=== PATIENT | male | born 1955 | race Caucasian/White ===

== ENCOUNTER 2019-02-28 07:44 | Day surgery (SDC) | payer OTHER ==
[2019-02-28] VITALS (13 sets, daily range): BP systolic 104–133; BP diastolic 60–80; PULSE 64–70; RESP 16–20; Ht 185.4 cm; Wt 119.8 kg
[~2019-02-28] VITALS: Ht 185.4 cm; Wt 119.8 kg
[~2019-02-28 07:44] MED LIST: DESFLURANE 15 MIN ONE
[2019-02-28] MEDS ORDERED: LISI2.5T59 PO (08:49)
[2019-02-28] MEDS ORDERED: TAMS-14 PO (08:50)
[2019-02-28] MEDS ORDERED: VANCOMYCIN HCL 2 GM in SOD CHLORIDE 0.9% 500 ML IVPB ONE (09:30)
[2019-02-28] MEDS ORDERED: LACTATED RINGER'S 1,000 ML IV SCH ×2 (10:00→13:12)
--- NOTE | 2019-02-28 10:32 | PREAC ---
Date/Time of Note Date/Time of Note DATE: 02/28/19 TIME: 10:31 Anesthesia Eval and Record Evaluation Time Pre-Procedure Interview DATE: 02/28/19 TIME: 10:31 Age 63 Sex male NPO: 8 hrs Preoperative diagnosis LEFT SHOULDER MASS, NOSE MASS Planned procedure EXCISION OF LEFT SHOULDER MASS, NOSE MASS Past Medical History Past Medical History: Includes Cardio: HTN Renal: BPH GI: Obesity Surgery & Anesthesia Issues No known issue Meds Anticoagulation: No Beta Irena within 24 hr: No Reason Beta Irena not given: Pt. not on B-Irena Reported Medications Tamsulosin Hcl* (Flomax*) 0.4 Mg Cap.er.24h, 0.4 MG PO DAILY, CAP 02/28/19 Lisinopril* (Lisinopril*) 2.5 Mg Tablet, 2.5 MG PO DAILY, #30 TAB 02/28/19 Current Medications Vancomycin HCl 2 gm/Sodium Chloride 500 ml @ 125 mls/hr ONCE ONCE IVPB Last administered on 02/28/19at 09:31; Admin Dose 125 MLS/HR; Start 02/28/19 at 09:30; Stop 02/28/19 at 13:29 Lactated Ringer's 1,000 ml @ 20 mls/hr Q24H IV ; Start 02/28/19 at 10:00 Meds reviewed: Yes Allergies Coded Allergies: Penicillins (Verified Allergy, Unknown, 02/28/19) Allergies Reviewed: Yes Labs/Studies Labs Reviewed: Reviewed by anesthesiologist Result Diagram: 02/28/1904 02/28/19 0904 Laboratory Tests 02/28/19 09:04 test: N/A Pre-procedure Exam Last vitals Vital Signs Date Temp Pulse Resp B/P (MAP) Pulse Ox O2 O2 Flow FiO2 Time Delivery Rate 02/28/19 97.7 64 16 133/80 99 Room Air 08:13 (97) Airway: Adequate mouth opening, Adequate thyromental dist Mallampati: Mallampati II Teeth: Normal Lung: Normal Heart: Normal ASA Physical Status ASA physical status: 2 Emergency: None Planned Anesthetic General/MAC: ETT Planned Pain Management Parenteral pain med Pre-operative Attestations Prior to commencing anesthesia and surgery, the patient was re-evaluated, there was verification of: *The patient's identity *The results of appropriate recent lab work and preoperative vital signs *The above evaluation not changing prior to induction *Anesthetic plan, risk benefits, alternative and complications discussed with patient/family; questions answered; patient/family understands, accepts and wishes to proceed. Shlomo Perez M.D. Feb 28, 2019 10:32
[2019-02-28] MEDS ORDERED: ROCURONIUM 50 MG INJ ONE (10:37)
[2019-02-28] MEDS ORDERED: NEOSTIGMINE 3 MG/3 ML SYRINGE ONE ×2 (10:37→12:11)
[2019-02-28] MEDS ORDERED: GLYCOPYRROLATE 0.4 MG INJ ONE ×2 (10:37→12:11)
[2019-02-28] MEDS ORDERED: PROPOFOL 20 ML ONE (10:37)
[2019-02-28] MEDS ORDERED: CEFAZOLIN 1 GM INJ ONE (10:37)
[2019-02-28] MEDS ORDERED: DEXAMETHASONE 4 MG/ML 5 ML INJ ONE (10:39)
[2019-02-28] MEDS ORDERED: ONDANSETRON 4 MG INJ ONE (10:39)
[2019-02-28] MEDS ORDERED: MIDAZOLAM 1 MG/ML 2 ML INJ ONE (10:39)
[2019-02-28] MEDS ORDERED: FENTAnyl 50 MCG/ML VIAL ONE (10:39)
[2019-02-28] MEDS ORDERED: BUPIVACAINE 0.25%/EPI (SDV) 30 ML INJ ONE (10:56)
[2019-02-28] MEDS ORDERED: LIDOCAINE 1%/EPI 30 ML INJ ONE (10:56)
[2019-02-28] MEDS ORDERED: BUPIVACAINE 0.25%/EPI (SDV) 30 ML INJ INJ ONE (11:30)
[2019-02-28] MEDS ORDERED: LIDOCAINE 1%/EPI 30 ML INJ INJ ONE (11:30)
[2019-02-28] MEDS ORDERED: EPHEDrine 25 MG/5 ML SYG ONE (11:36)
[2019-02-28] MEDS ORDERED: OXYCODONE/ACETAMINOPHEN (5/325) TAB PO PRN ×2 (12:00)
[2019-02-28] MEDS ORDERED: ONDANSETRON 4 MG INJ IV PRN ×2 (12:00→13:30)
[2019-02-28] MEDS ORDERED: LABETALOL HCL 20MG INJ IV PRN (12:00)
[2019-02-28] MEDS ORDERED: MEPERIDINE 25 MG INJ IV PRN (12:00)
[2019-02-28] MEDS ORDERED: HYDROmorphONE 1 MG/5 ML IV SYRINGE IV PRN ×3 (12:00)
--- NOTE | 2019-02-28 13:12 | SIPON ---
Date/Time of Note Date/Time of Note DATE: 02/28/19 TIME: 13:05 Operative Report Preoperative Diagnosis Large subcutaneous mass left shoulder posteriorly Postoperative Diagnosis Same as preop #1 #2 skin tag left nostril Operation/Procedure Performed 1. Removal of the large subcutaneous mass posterior left shoulder area with an ellipse of the skin attached to that. 2. Excision of the skin tag left nostril. Surgeon see signature line blacksmith assistant None Anesthesia: general Estimated blood loss: 10 - 50 ml's Transfusion Required none Specimen 1. The subcutaneous mass with an ellipse of the skin attached to each from posterior shoulder area. Skin tag from left nostril. Grafts/Implants none Complications none SAMAN CANTRELL MD Feb 28, 2019 13:11
[2019-02-28] MEDS ORDERED: HYDROCODONE/APAP (5/325) TAB PO PRN (13:30)
[2019-02-28] MEDS ORDERED: morphine 2 MG INJ IV PRN (13:30)
[2019-02-28] MEDS ORDERED: morphine 10 MG INJ IM PRN (13:30)
--- NOTE | 2019-02-28 13:49 | PAC ---
Date/Time of Note Date/Time of Note DATE: 02/28/19 TIME: 13:48 Post-Anesthesia Notes Post-Anesthesia Note Last documented vital signs Vital Signs Date Temp Pulse Resp B/P (MAP) Pulse Ox O2 O2 Flow FiO2 Time Delivery Rate 02/28/19 68 20 111/64 96 Room Air 13:25 (80) 02/28/19 97.0 13:09 Activity: WNL Respiratory function: WNL Cardiovascular function: WNL Mental status: Baseline Pain reasonably controlled: Yes Hydration appropriate: Yes Nausea/Vomiting absent: Yes DILIP CURM Feb 28, 2019 13:49
--- NOTE | 2019-02-28 14:21 | RADRPT ---
Vent Rate: 66 bpm RR Interval: 908 msec IN Interval: 187 msec QRS Duration: 99 msec QT Interval: 414 msec QTC Interval: 434 msec P-R-T [place]: 51 - -17 - 30 degrees Sinus rhythm...normal P axis, V-rate 50- 99 Electronically Signed By: Slava Nolan
--- NOTE | 2019-03-01 13:40 | OPR ---
DATE OF OPERATION: 02/28/2019 SURGEON: Omar Alejandra MD BELT WEAVER: None. ANESTHESIA: General. ANESTHESIOLOGIST: Shlomo Perez MD PREOPERATIVE DIAGNOSES: 1) Very large subcutaneous mass, left posterior shoulder area. 2) skin tag left nostril POSTOPERATIVE DIAGNOSES: Very large subcutaneous mass, left posterior shoulder area, possibly lipoma. Skin tag left Nostril PROCEDURES: 1. Excision of the mass with a rim of skin attached on top of it. 2. Local flap advancement, superior and inferior to the incision line for tensionless closure. 3. excision of skin tag left nostril INDICATION: This is a 63-year-old gentleman who presented to the clinic complaining of presence of a mass in the left posterior shoulder area for a while and recently has been increasing in size and it has been causing pain and bothering him especially when he lies down on his back. On physical exam, there was a large mass which was subcutaneously and also slightly adherent to the overlying skin deeply, appears to be adherent to the muscles. I discussed with the patient the risks and benefits of operation, possible complications including bleeding, infection, wound dehiscence in that area, possible need for further operation, possible recurrence of the mass, formation of a hypertrophic scar and painful scar. The patient understood, accepted and wanted the operation to be done. PROCEDURE IN DETAILS: On the day of the operation, the patient was brought to the holding area. I saw the patient in the holding area and again examined him and discussed with the patient. All his questions were answered. The patient signed the consent and the patient was taken to the operating room for operation. The patient was placed on operating table in supine position. Anesthesia was induced by the anesthesiologist. Intubation was performed. A 2 grams of vancomycin was given to the patient IV by the anesthesiologist (THE PATIENT IS ALLERGIC TO PENICILLIN). Then, the position of the patient was changed to right down decubitus and left up. Then, area of the operation was prepped with Betadine and draped in a sterile fashion. All through the operation, a mixture of 30 mL of 1% lidocaine with epinephrine plus 30 mL of 0.25% Marcaine with epinephrine was used for local anesthesia and postop analgesia. After adequate local anesthesia, injection was given. Then, a 12 cm transverse elliptical incision was made on the skin which on the ellipse of incision was about 1.2 cm. This was carried down to subcutaneous tissue. Then, superior and inferior resection of the mass continued until eventually take the whole mass which appeared like a lipoma was mobilized completely and posteriorly. It was adherent to the posterior chest wall muscle. Hemostasis was achieved completely. Wound was irrigated. In order to have a tension-free closure, superior and inferior local flap advancement was performed. Then, [place] drain was introduced into the wound from the inferior part of incision and was placed in the cavity of the removed mass. Then, closure of the deep layer was performed with 2-0 Vicryl. Several interrupted sutures were used. The drain was underneath this fascial closure. Then the skin was approximated using chao. At the end, Telfa and dry dressing was applied and covered. The patient tolerated procedure well. Sponge, needle and instrument count reported to be correct x2. Estimated blood loss was 20 mL. The specimen was the subcutaneous mass attached to the rim of skin on top of it was sent for pathologic evaluation by the nurse. I forgot to mention that also the patient had requested removal of skin tag over the left nostril area; therefore after the patient's position was changed from left down decubitus to supine position, then, the left nostril was prepped with Betadine and draped, slight amount of lidocaine was injected over there and using a sharp 15-blade, the skin tag was removed, flush with the surface of the skin and for control of the bleeding, electrocautery was used and then the wound was covered with sterile dressing. The specimen as a skin tag over the left nostril also was given to the nurses and passed off this field and sent for pathologic evaluation. The patient tolerated procedure well in supine position, was extubated and in stable condition, was transferred to recovery room. Dictated By: OMAR WOODS/AKYODE Conf#: [id number] DID#: [id number] TRESA
== END 2019-02-28 14:54 | disposition home or self-care (01) ==
LOC: SDS 07:44
DX: D17.22 Benign lipomatous neoplasm of skin and subcutaneous tissue of left arm (principal); D17.0 Benign lipomatous neoplasm of skin and subcutaneous tissue of head, face and neck; R22.32 Localized swelling, mass and lump, left upper limb; L91.8 Other hypertrophic disorders of the skin
CPT/HCPCS: 11200; 14020; 71045; 80053; 85025; 85610; 85730; 88304; 88307; 93005; J1100; J2250; J2405; J2710; J3010; J3370; J7040; Z7512; Z7610; J0690